=== PATIENT | male | born 1990 | race Two or more races ===

== ENCOUNTER 2016-07-25 08:58 | Emergency (ER) | payer MEDICAID ==
[2016-07-25 09:12] VITALS: BP 107/62; PULSE 70; RESP 16; TEMP 98.8; O2SAT 97
[2016-07-25 09:51] LABS: COLOR YELLOW; LEUKOCYTE ESTERASE,URINE NEGATIVE (NEGATIVE); NITRITE,URINE NEGATIVE (NEGATIVE)
--- NOTE | 2016-07-25 09:52 | EDPHY ---
H & P Stated Complaint: ruq pain 2 weeks Time Seen by Provider: 07/25/16 09:10 HPI/ROS: CHIEF COMPLAINT: Right side pain History by patient HISTORY OF PRESENT ILLNESS: 25-year-old male with no significant past medical history presents complaining of right upper quadrant and flank pain which began suddenly 2 weeks ago with a severe pain in his side in the evening. It was not associated any nausea or vomiting. It resolved on its own. Subsequently he has had intermittent episodes that last from seconds to hours that, on suddenly and are sharp. It does not radiate into his groin. He denies any associated fever, chills, nausea or vomiting. Is not related to food. He is able to eat without difficulty. He has been having normal bowel movements. He has never had anything like this before. One week prior to the onset of the symptoms he did fall down some stairs and hurt his lower back and tailbone and also had a 24 hour febrile illness but the symptoms all resolved prior to the onset of this right side pain. He has not really taken anything for pain at home. He was concerned because it has been going on for 2 weeks now and he was worried it might be appendicitis. He has no prior history of kidney stones in his family history is unknown because he is adopted. REVIEW OF SYSTEMS: As in HPI, and all other systems reviewed and are negative Source: Patient - Medical/Surgical History Hx Asthma: No Hx Chronic Respiratory Disease: No Hx Diabetes: No Hx Cardiac Disease: No Hx Renal Disease: No Hx Cirrhosis: No Hx Alcoholism: No Hx HIV/AIDS: No Hx Splenectomy or Spleen Trauma: No Other PMH: Denies medical or surgical history. Vegetarian diet. - Family History Significant Family History: No pertinent family hx - Social History Smoking Status: Never smoked - Physical Exam Exam: General Appearance: Alert, comfortable, nontoxic-appearing. Eyes: Pupils equal and round no pallor or injection. ENT, Mouth: Mucous membranes moist. Respiratory: Normal, effort, There are no retractions, lungs are clear to auscultation. Cardiovascular: Regular rate and rhythm. Gastrointestinal: Abdomen is soft and nontender, no masses, bowel sounds normal. Back: No CVA tenderness bilaterally Neurological: Awake, alert and oriented x 3, no pronator drift, normal gait, no pronator drift Skin: Warm and dry, no rashes. Musculoskeletal: Neck is supple nontender. Extremities are symmetrical, full range of motion. Psychiatric: Patient has normal affect, there is no agitation. Constitutional: Initial Vital Signs Temperature (C) 37.1 C 07/25/16 09:09 Heart Rate 70 07/25/16 09:09 Respiratory Rate 16 07/25/16 09:09 Blood Pressure 107/62 07/25/16 09:09 O2 Sat (%) 97 07/25/16 09:09 O2 Delivery Mode Room Air Allergies/Adverse Reactions: cephalexin Allergy (Verified 07/25/16 09:12) Home Medications: Medication Instructions Recorded NK [No Known Home Meds] 12/14/15 Medical Decision Making ED Course/Re-evaluation: 25-year-old male with no past medical history presents complaining of intermittent sharp right flank pain. Exam is completely unremarkable. I was concerned about the possibility of kidney stones but he urinalysis is negative for bladder infection. There is no clinical evidence of gallbladder disease or appendicitis. Patient has no concerning associated symptoms or systemic toxicity. Patient was given reassurance. He is referred for primary care. We discussed return precautions. - Data Points Laboratory Results: 07/25/16 09:45 Urine Color YELLOW Urine Appearance CLEAR Urine pH 8.0 H (5.0-7.5) Ur Specific [place] 1.015 (1.002-1.030) Urine Protein NEGATIVE (NEGATIVE) Urine Ketones NEGATIVE (NEGATIVE) Urine Blood NEGATIVE (NEGATIVE) Urine Nitrate NEGATIVE (NEGATIVE) Urine Bilirubin NEGATIVE (NEGATIVE) Urine Urobilinogen 0.2 EU EU (0.2-1.0) Ur Leukocyte Esterase NEGATIVE (NEGATIVE) Urine Glucose NEGATIVE (NEGATIVE) Departure - Departure Disposition: Home, Routine, Self-Care Clinical Impression: Acute right flank pain Condition: Good Instructions: Flank Pain (ED) Additional Instructions: You were seen by Dr. Dolly Hebert today. We have not found any serious cause of her symptoms today. Return for any worsening or new concerns, including but not limited to uncontrolled pain, fever, nausea vomiting or other new symptoms or concerns. . Referrals: NONE *PRIMARY CARE P,. [Primary Care Provider] - As per Instructions
== END 2016-07-25 10:18 | disposition home or self-care (01) ==
LOC: CED 08:58
DX: R10.9 Unspecified abdominal pain (principal)
CPT/HCPCS: 81003-PO

== ENCOUNTER 2016-09-20 23:24 | Emergency (ER) | payer MEDICAID ==
[2016-09-20 23:54] VITALS: BP 112/68; PULSE 66; RESP 16; O2SAT 95
[2016-09-21 00:19] VITALS: TEMP 98.4
--- NOTE | 2016-09-21 00:19 | EDPHY ---
H & P Time Seen by Provider: 09/20/16 23:34 HPI/ROS: This 25 y/o male with no significant PMH presents to the ED with his uncle for c /o rectal itching since 10pm this evening. He then inserted a "prostate device " into the rectum to alleviate the discomfort. When he took the device out he noticed little white pinworms wiggling about. He is not sure how he contracted the pinworms. He has no other symptoms. He admits to being constipated this week. Last rectal intercourse was March. ROS: He denies fever, chills, changes in vision, cough, abdominal pain, hematochezia, dysuria or discharge. Smoking Status: Never smoked Physical Exam: GEN: Alert and Oriented x 3; anxious HEENT: PERRLA, EOMI, conjunctiva normal, oropharynx clear Heart: RRR, no M/G/R Lungs: CTAB, no R/R/W Rectal: +multiple live pinworms at anus Constitutional: Initial Vital Signs Temperature (C) 99.9 F 09/20/16 23:30 Heart Rate 66 09/20/16 23:30 Respiratory Rate 16 09/20/16 23:30 Blood Pressure 112/68 09/20/16 23:30 O2 Sat (%) 95 09/20/16 23:30 O2 Delivery Mode Room Air Allergies/Adverse Reactions: cephalexin Allergy (Verified 09/20/16 23:41) Home Medications: Medication Instructions Recorded MEBENDAZOLE [Vermox] 100 mg PO ONCE #2 tab 09/21/16 Medical Decision Making ED Course/Re-evaluation: The patient was seen and examined. Rectal exam +pinworms. Rx: Mebendazole 100mg once followed by another dose in 2 weeks. Uncle lives in home as well. Seeing as it is a holiday weekend, I wrote the same prescription for Mebendazole for Mr. Joshua (NKDA; Meds: Losartan) Differential Diagnosis: Including but not limited to: pinworms Departure - Departure Disposition: Home, Routine, Self-Care Condition: Good Instructions: Enterobiasis (ED) Additional Instructions: Take a second dose of the medication two weeks after the first dose. Refer to all the information given to you from the ER. Follow up with your primary care provider or return to the ER if any further problems or concerns. Referrals: Patient,NotPresent [Primary Care Provider] - As per Instructions Prescriptions: MEBENDAZOLE [Vermox] 100 mg PO ONCE #2 tab
== END 2016-09-21 00:24 | disposition home or self-care (01) ==
LOC: CED 23:24
DX: B80 Enterobiasis (principal)

== ENCOUNTER 2016-11-18 15:33 | Emergency (ER) | payer MEDICAID ==
[2016-11-18 15:39] VITALS: TEMP 98.2
--- NOTE | 2016-11-18 16:05 | EDPHY ---
H & P Stated Complaint: episodic sob, shakey, and light headed Time Seen by Provider: 11/18/16 15:41 HPI/ROS: This patient reports having episodes a periodic lightheadedness, shortness of breath and tingling sensations. He states that these occur abruptly and seem to separate ties him at times. Today he was at work was actually laughing shortly for feeling that he was having difficulty catching his breath and then developed a tight feeling in his chest for brief period of time that has resolved. He feels like he "freaked out ". He had feeling of air hunger during the episode. Again he has had similar episodes in the past. He also had an episode of brief chest pain while at work 4 weeks ago and saw his primary care physician at [facility]. He reports that blood work was done an EKG was done which was reported as normal. ROS: Constitutional: No fevers or chills. No other symptoms Neuro: No focal weakness. He did have tingling mostly in his neck during the episode earlier that has since resolved. HEENT: No recent URI symptoms. No headache. Pulmonary: A shortness of breath has resolved. No pleuritic pain. No coughing. Cardiovascular: Occasional heart palpitations no recent change in the pattern of this which is described as rare skipped her extra heartbeat. No chest pain in the past 3 weeks. GI: No abdominal pain. No nausea vomiting. Integumentary: No skin rash Endocrine: No complaints. Psychiatric board he reports good sleep recently with no recent insomnia. He denies any significant anxiety depression. : Reports mild burning with urination last night. No urethral discharge. No testicular pain or swelling. 10 point ROS is otherwise negative Source: Patient Exam Limitations: No limitations - Personal History Current Tetanus/Diphtheria Vaccine: Yes Current Tetanus Diphtheria and Acellular Pertussis (TDAP): Yes - Medical/Surgical History PMH: Family history is negative for asthma. Hx Asthma: No Hx Chronic Respiratory Disease: No Hx Diabetes: No Hx Cardiac Disease: No Hx Renal Disease: No Hx Cirrhosis: No Hx Alcoholism: No Hx HIV/AIDS: No Hx Splenectomy or Spleen Trauma: No Other PMH: Denies medical or surgical history. Vegetarian diet. - Family History Significant Family History: No pertinent family hx - Social History Smoking Status: Never smoked Alcohol Use: Rarely Drug Use: None Additional Social History: Works at the [employer] - Physical Exam Exam: General Appearance: Alert, no distress. Eyes: Pupils equal and round no pallor or injection. ENT, Mouth: Mucous membranes moist. Respiratory: There are no retractions, lungs are clear to auscultation. Cardiovascular: Regular rate and rhythm. Gastrointestinal: Abdomen is soft and nontender, no masses, bowel sounds normal. Neurological: GCS 15 with no focal deficits. He has occasional whole body take this brief contraction of muscles and resolves instantaneously. Skin: Warm and dry, no rashes. Musculoskeletal: Neck is supple nontender. Extremities are symmetrical, full range of motion. Psychiatric: Mood and affect normal . DIFFERENTIAL DIAGNOSIS: After history and physical exam differential diagnosis was considered for panic attack, anxiety, doubt reactive airway disease, doubt pheochromocytoma, UTI Constitutional: Initial Vital Signs Temperature (C) 36.8 C 11/18/16 15:36 Heart Rate 67 11/18/16 15:36 Respiratory Rate 18 11/18/16 15:36 Blood Pressure 110/81 H 11/18/16 15:36 O2 Sat (%) 98 11/18/16 15:36 O2 Delivery Mode Room Air Allergies/Adverse Reactions: cephalexin Allergy (Verified 09/20/16 23:41) Home Medications: Medication Instructions Recorded Fluticasone Hfa 220 Mcg [Flovent 2 puffs IH DAILY #1 mdi 11/18/16 220 MCG Hfa MDI (*)] Propranolol HCl [Inderal 10mg (*)] 10 - 20 mg PO BID PRN #20 tab 11/18/16 Medical Decision Making ED Course/Re-evaluation: Patient's peak flows 500. He received a Xopenex neb without any significant change in his peak flow still 500 post neb. He felt slightly "revved up "from the Xopenex he reported. Review of his urinalysis reveals a normal UA. Discussion/medical decision-making: This patient's symptoms sound most consistent with panic and hyperventilation. He may though have a bit of air hunger from some underlying mild bronchial constriction that is triggering the panic. I suggested the Flovent steroid inhaler while monitoring his peak flow over the next 7-14 days and follow up with primary care physician. I also discussed relaxation techniques in the importance of exercise. Will also prescribe propranolol if needed for panic episodes. Regarding his nervous take suggested follow up with Neurology if it starts becoming problematic terms of bothersome symptoms. He has had rare take her to which while I am in the room reports that has been occurring intermittently over the last 2 years. - Data Points Laboratory Results: 11/18/16 16:30 Urine Color YELLOW Urine Appearance CLEAR Urine pH 6.5 (5.0-7.5) Ur Specific [place] 1.010 (1.002-1.030) Urine Protein NEGATIVE (NEGATIVE) Urine Ketones NEGATIVE (NEGATIVE) Urine Blood NEGATIVE (NEGATIVE) Urine Nitrate NEGATIVE (NEGATIVE) Urine Bilirubin NEGATIVE (NEGATIVE) Urine Urobilinogen 0.2 EU EU (0.2-1.0) Ur Leukocyte Esterase NEGATIVE (NEGATIVE) Urine Glucose NEGATIVE (NEGATIVE) Medications Given: Discontinued Medications Levalbuterol (Xopenex 0.63mg Neb) 0.63 mg IH EDNOW ONE Stop: 11/18/16 16:12 Last Admin: 11/18/16 16:28 Dose: 0.63 mg Departure - Departure Disposition: Home, Routine, Self-Care Clinical Impression: Tic like phenomenon, Paresthesia Dyspnea Qualifiers: Dyspnea type: unspecified Qualified Code(s): R06.00 - Dyspnea, unspecified Condition: Good Instructions: Dyspnea (ED), Tic Disorder (ED) Additional Instructions: Diagnoses: 1. Dyspnea 2. Paresthesias 3. Tic like phenomena Plan: Continue avoiding excessive stimulants Try propranolol beta-manuel if he have any recurrent episodes of anxiety, shortness of breath or tingling 10-20 mg orally. You can take this 2 times a day if needed. Try Flovent steroid inhaler to see if you improved with her peak flow up to expected peak flow of 600-650. Follow up with your primary care physician for further evaluation for any ongoing symptoms. Return for any significant worsening despite the treatment plan Consider following up with Neurology regarding your tic Referrals: YAMILE RAO,. [Primary Care Provider] - As per Instructions Juan Daniel Lyman MD [Medical Doctor] - As per Instructions Prescriptions: Fluticasone Hfa 220 Mcg [Flovent 220 MCG Hfa MDI (*)] 2 puffs IH DAILY #1 mdi Propranolol HCl [Inderal 10mg (*)] 10 - 20 mg PO BID PRN #20 tab PRN Reason: panic
[2016-11-18] MEDS ORDERED: LEVALBUTEROL 0.63 MG/3 ML DEYVIAL IH ONE (16:11)
[2016-11-18 16:35] LABS: COLOR YELLOW; LEUKOCYTE ESTERASE,URINE NEGATIVE (NEGATIVE); NITRITE,URINE NEGATIVE (NEGATIVE); PH,URINE 6.5 (5.0-7.5)
[2016-11-18 17:23] VITALS: BP 100/68; PULSE 57; RESP 16; O2SAT 96
== END 2016-11-18 17:10 | disposition home or self-care (01) ==
LOC: CED 15:33
DX: R06.00 Dyspnea, unspecified (principal); F95.0 Transient tic disorder; R20.2 Paresthesia of skin
CPT/HCPCS: 81003-PO

== ENCOUNTER 2016-12-27 19:28 | Emergency (ER) | payer MEDICAID ==
[2016-12-27 19:38] VITALS: TEMP 98.2
--- NOTE | 2016-12-27 20:00 | CPEKG ---
Heart Rate: 61 RR Interval: 984 P-R Interval: 176 QRSD Interval: 102 QT Interval: 420 QTC Interval: 423 P [place]: 60 QRS [place]: 199 T Wave [place]: 42 EKG Severity - OTHERWISE NORMAL ECG - EKG Impression: SINUS RHYTHM EKG Impression: S1,S2,S3 PATTERN Electronically Signed By: Elias Arana 27-Dec-2016 21:06:20
--- NOTE | 2016-12-27 20:48 | EDPHY ---
H & P Time Seen by Provider: 12/27/16 19:56 HPI/ROS: CHIEF COMPLAINT: Chest pain HISTORY OF PRESENT ILLNESS: 26-year-old male presents to the emergency department with intermittent chest pain. The patient states that he has been going on for quite some time, since 2010 ". He feels that it is becoming much more frequent now. He has intermittent pressure in his chest as well as feeling tingly throughout his body. He does not feel short of breath. No headache. No fevers or chills. No abdominal pain or vomiting. No abdominal pain. The patient was seen a month and a half ago and was started on propranolol. He has been taking this as prescribed with no benefit. He had a recent echocardiogram done at [facility]. He also had a Holter monitor recently however he does not have the results of this. He is scheduled to see a consulting utility forester on 01/06/2017. Patient states while he was at work today he developed the chest pressure. He feels that it is better than it was earlier today however not resolved. He denies feeling short of breath currently. He has had intermittent posterior headaches. He does not feel weak. No reported trauma. REVIEW OF SYSTEMS: Constitutional: No fever, no chills. Eyes: No double or blurry vision. ENT: No sore throat. Respiratory: No cough, no shortness of breath. Cardiac: Chest pain. Gastrointestinal: No abdominal pain, vomiting or diarrhea. Genitourinary: No dysuria. Musculoskeletal: No neck or back pain. Skin: No rashes. Neurological: No headache. Past Medical/Surgical History: Negative Social History: Single, student at [employer] Smoking Status: Never smoked Physical Exam: General Appearance: Alert, no distress. No apparent distress. Vital signs are stable. Friend at bedside. Eyes: Pupils equal and round. Extraocular motions are all intact. ENT: Mouth: Mucous membranes moist. Respiratory: No wheezing, rhonchi, or rales, lungs are clear to auscultation. Unable to reproduce pain with palpation to the anterior aspect of the chest. No palpable crepitus or other bony abnormality. Cardiovascular: Regular rate and rhythm. Gastrointestinal: Abdomen is soft and nontender, no masses, no rebound or guarding, bowel sounds normal. Neurological: Alert and oriented x 3, cranial nerves II through XII grossly intact Skin: Warm and dry, no rashes. Musculoskeletal: Nontender to palpate along the cervical, thoracic or lumbar spine. Neck is supple. Extremities: Full range of motion and no peripheral edema. Psychiatric: Patient is oriented X 3, there is no agitation. Constitutional: Initial Vital Signs Temperature (C) 36.8 C 12/27/16 19:31 Heart Rate 68 12/27/16 19:31 Respiratory Rate 18 12/27/16 19:31 Blood Pressure 126/82 H 12/27/16 19:31 O2 Sat (%) 99 12/27/16 19:31 O2 Delivery Mode Room Air Allergies/Adverse Reactions: cephalexin Allergy (Verified 09/20/16 23:41) Home Medications: Medication Instructions Recorded Fluticasone Hfa 220 Mcg [Flovent 2 puffs IH DAILY #1 mdi 11/18/16 220 MCG Hfa MDI (*)] Propranolol HCl [Inderal 10mg (*)] 10 - 20 mg PO BID PRN #20 tab 11/18/16 Medical Decision Making ED Course/Re-evaluation: 26-year-old male presents to the emergency department with intermittent chest pressure and tingling. He has had Holter monitor and echocardiogram recently. He was scheduled to see a consulting utility forester 01/06/2017. The case was discussed with Dr. Elias Arana, secondary supervising physician, who spoke with the on-call consulting utility forester, Dr. Marcos Mueller and the patient will be seen in their clinic tomorrow for follow-up. Labs are all within normal limits. EKG is unremarkable. Patient was comfortable being discharged home. Differential Diagnosis: Chest pain including but not limited to myocardial ischemia, pulmonary embolus, chest wall pain, pleural inflammation and pulmonary infectious causes. - Data Points Laboratory Results: Laboratory Results 12/27/16 20:00 12/27/16 20:00 12/27/16 12/27/16 12/27/16 20:00 20:00 20:00 WBC 6.07 10^3/uL 10^3/uL (3.80-9.50) RBC 5.15 10^6/uL 10^6/uL (4.40-6.38) Hgb 16.6 g/dL g/dL (13.7-17.5) Hct 44.9 % % (40.0-51.0) MCV 87.2 fL fL (81.5-99.8) MCH 32.2 pg pg (27.9-34.1) MCHC 37.0 g/dL H g/dL (32.4-36.7) RDW 11.8 % % (11.5-15.2) Plt Count 182 10^3/uL 10^3/uL (150-400) MPV 10.0 fL fL (8.7-11.7) Neut % (Auto) 41.4 % % (39.3-74.2) Lymph % (Auto) 47.6 % H % (15.0-45.0) [place] % (Auto) 7.6 % % (4.5-13.0) Eos % (Auto) 2.5 % % (0.6-7.6) Baso % (Auto) 0.7 % % (0.3-1.7) Nucleat RBC Rel Count 0.0 % % (0.0-0.2) Absolute Neuts (auto) 2.52 10^3/uL 10^3/uL (1.70-6.50) Absolute Lymphs (auto) 2.89 10^3/uL 10^3/uL (1.00-3.00) Absolute Monos (auto) 0.46 10^3/uL 10^3/uL (0.30-0.80) Absolute Eos (auto) 0.15 10^3/uL 10^3/uL (0.03-0.40) Absolute Basos (auto) 0.04 10^3/uL 10^3/uL (0.02-0.10) Absolute Nucleated RBC 0.00 10^3/uL 10^3/uL (0-0.01) Immature Gran % 0.2 % % (0.0-1.1) Immature Gran # 0.01 10^3/uL 10^3/uL (0.00-0.10) D-Dimer < 0.27 ug/mLFEU ug/mLFEU (0.00-0.50) Sodium 135 mEq/L mEq/L (134-144) Potassium 4.0 mEq/L mEq/L (3.5-5.2) Chloride 101 mEq/L mEq/L (97-110) Carbon Dioxide 26 mEq/l mEq/l (22-31) Anion Gap 8 mEq/L mEq/L (8-16) BUN 14 mg/dL mg/dL (7-23) Creatinine 0.8 mg/dL mg/dL (0.7-1.3) Estimated GFR > 60 Glucose 87 mg/dL mg/dL (70-100) Calcium 9.9 mg/dL mg/dL (8.5-10.4) Troponin I < 0.012 ng/mL ng/mL (0.000-0.034) Departure - Departure Disposition: Home, Routine, Self-Care Clinical Impression: Chest pain Qualifiers: Chest pain type: unspecified Qualified Code(s): R07.9 - Chest pain, unspecified Condition: Good Instructions: Chest Pain (ED) Additional Instructions: Call tomorrow morning at 8:30 a.m. and tell them that we spoke with Dr. Mueller while you are in the emergency department tonight and your to see someone in follow-up in the office tomorrow, Tuesday. Referrals: Marcos Mueller MD [Medical Doctor] - As per Instructions (Appliance Repair Technician on -call.)
[2016-12-27 20:49] LABS: % IMMATURE GRANULYOCYTES 0.2 % (0.0-1.1); ABSOLUTE IMMATURE GRANULOCYTES 0.01 10^3/uL (0.00-0.10); ADD DIFF? NO; ADD MORPH? NO; ADD SCAN? NO; ATYPICAL LYMPHOCYTE FLAG 10 (0-99); FRAGMENT RBC FLAG 0 (0-99); HEMATOCRIT 44.9 % (40.0-51.0); HEMOGLOBIN 16.6 g/dL (13.7-17.5); LEFT SHIFT FLG 0 (0-99); LIPEMIA HEMOLYSIS FLAG 90 (0-99); MEAN CELL HEMOGLOBIN 32.2 pg (27.9-34.1); MEAN CELL VOLUME 87.2 fL (81.5-99.8); PLATELET CLUMPS FLAG 20 (0-99); PLATELET COUNT 182 10^3/uL (150-400); RED BLOOD CELL COUNT 5.15 10^6/uL (4.40-6.38); RED CELL DISTRIBUTION WIDTH 11.8 % (11.5-15.2)
[2016-12-27 20:50] LABS: ANION GAP 8 mEq/L (8-16); CALCIUM 9.9 mg/dL (8.5-10.4); CARBON DIOXIDE 26 mEq/l (22-31); CHLORIDE 101 mEq/L (97-110); CREATININE 0.8 mg/dL (0.7-1.3); GLOMERULAR FILTRATION RATE > 60; GLUCOSE 87 mg/dL (70-100); SODIUM 135 mEq/L (134-144)
[2016-12-27 21:02] LABS: TROPONIN I < 0.012 ng/mL (0.000-0.034)
[2016-12-27 21:12] VITALS: PULSE 58
[2016-12-27 21:47] VITALS: BP 106/63; RESP 16; O2SAT 97
== END 2016-12-27 21:46 | disposition home or self-care (01) ==
DX: R07.9 Chest pain, unspecified (principal)

== ENCOUNTER → 2017-01-18 | Outpatient (CLI) | payer MEDICAID ==
[~2017-01-18] MED LIST: IOPAMIDOL (ISOVUE 370) 100 ML BTL IV ONE
== END ==
LOC: FIMAGING 01-13 11:58
PROVIDERS: ATTEND Internal Medicine Cardiovascular Disease
DX: R07.9 Chest pain, unspecified (principal); R06.02 Shortness of breath; Z82.79 Family history of other congenital malformations, deformations and chromosomal abnormalities
CPT/HCPCS: Q9967

== ENCOUNTER 2017-11-19 05:08 | Emergency (ER) | payer MEDICAID ==
[2017-11-19 05:17] VITALS: BP 116/91
--- NOTE | 2017-11-19 05:48 | EDPHY ---
H & P Time Seen by Provider: 11/19/17 05:21 HPI/ROS: CHIEF COMPLAINT: Right ear pain HISTORY OF PRESENT ILLNESS: Patient states that he developed right ear pain about 30 hr ago. He states he can feel little bump in his right ear just inside the ear canal. He told me it bled a little bit when he put a Q-tip into it. Otherwise no drainage. He denies any trauma there. He has had no hearing changes. No fever, sore throat, URI symptoms. No other rashes or lesions. Tried 1 ibuprofen yesterday without much help. He is taking no other medications. REVIEW OF SYSTEMS: Negative except per HPI. General Appearance: Alert, no distress. Eyes: Pupils equal and round no icterus HEENT: Eyes normal, no conjunctivitis, erythema, drainage, extraocular motions intact. Skin to face normal, no lesions. No lymphadenopathy. Normal oropharynx and dentition. Left ear normal. Right ear normal external ear, just within the external auditory canal at approximately the 2 o'clock position is a raised round flesh-colored bump 2-3 mm in diameter. Very tender to touch. No drainage or bleeding noted. Normal TM. Respiratory: No respiratory distress Neurological: Awake, alert, no focal deficits. Skin: Warm and dry, no rashes. Musculoskeletal: Neck is supple nontender. Extremities are symmetrical, full range of motion, no edema. Psychiatric: Patient is oriented X 3, there is no agitation. Medical/surgical history: Depression and anxiety, history of tonsillectomy. Social history: Denies alcohol tobacco or drugs. Smoking Status: Never smoked Constitutional: Initial Vital Signs Temperature (C) 36.9 C 11/19/17 05:13 Heart Rate 66 11/19/17 05:13 Respiratory Rate 16 11/19/17 05:13 Blood Pressure 116/91 H 11/19/17 05:13 O2 Sat (%) 96 11/19/17 05:13 O2 Delivery Mode Room Air Allergies/Adverse Reactions: cephalexin Allergy (Intermediate, Verified 11/19/17 05:17) Rash Home Medications: Medication Instructions Recorded NK [No Known Home Meds] 11/19/17 Medical Decision Making Differential Diagnosis: Differential diagnosis includes but is not limited to otitis media, otitis externa, [place] syndrome, pimple. After evaluation unclear etiology for the bump in the external auditory canal. Does not look herpetic in nature and no other lesions noted. No pain in remainder of dermatomal distribution including tip of nose to suggest zoster. Normal TM and external auditory canal without other lesions or erythema to suggest otitis media or externa. Will treat conservatively with warm soaks, [id number] analgesia. Referred to ENT on Tuesday for recheck. Discussed indications to return to the emergency department in detail. Stable for discharge. Departure - Departure Clinical Impression: Ear pain, right Condition: Good Instructions: Earache (ED) Additional Instructions: Try hot packs to your right ear 3 to 4 times a day as discussed. Ibuprofen and Tylenol for pain. Call Ear Nose and Throat doctor on Tuesday for follow-up without fail. If the lesion in your right external auditory canal worsens in any concerning way return to the emergency department. Or if you get fevers, other lesions, severe headache or other concerning new symptoms also return to the emergency department. Referrals: Hossein García MD [Medical Doctor] - As per Instructions Patient,NotPresent [Primary Care Provider] - As per Instructions [facility] RAO,. [Clinic] - As per Instructions
== END 2017-11-19 05:55 | disposition home or self-care (01) ==
LOC: CED 05:08
DX: H92.01 Otalgia, right ear (principal)